=== PATIENT | female | born 1985 | race Caucasian/White ===

== ENCOUNTER 2017-07-17 20:04 | Emergency (ER) ==
[2017-07-17 20:13] VITALS: BP 149/109; TEMP 98.6; BMI 29.2
[2017-07-17] MEDS ORDERED: SODIUM CHLORIDE 1,000 ML IV STA (20:22)
[2017-07-17] MEDS ORDERED: DILAUDID 1 MG/ML SYRINGE IVP STA ×2 (20:24→21:33)
[2017-07-17] MEDS ORDERED: ZOFRAN 4 MG/2 ML IVP STA (20:24)
[2017-07-17 20:51] LABS: BASOPHILS # (AUTO) 0.1 K/uL (0-0.2); BASOPHILS % (AUTO) 0.5 % (0.0-3.0); EOSINOPHILS # (AUTO) 0.1 K/ul (0.0-0.7); EOSINOPHILS % (AUTO) 0.8 % (0.0-7.0); HEMATOCRIT 41.3 % (37.0-47.0); HEMOGLOBIN 14.4 g/dl (12.0-16.0); IMMATURE GRANULOCYTE % (AUTO) 0.6 % (0.0-5.0); LYMPHOCYTES # (AUTO) 1.2 K/uL (0.60-3.4); LYMPHOCYTES % (AUTO) 10.7 (10.0-50.0); MEAN CORPUSCULAR HEMOGLOBIN 29.7 pg (27.0-31.0); MEAN CORPUSCULAR HGB CONC 34.9 (31.8-35.4); MEAN CORPUSCULAR VOLUME 85.2 fl (81.0-99.0); MONOCYTES # (AUTO) 0.8 K/uL (0.4-2.0); NEUTROPHILS # (AUTO) 9.3 K/ul (2.0-6.9); NEUTROPHILS % (AUTO) 80.4; PLATELET COUNT 340 10^3/uL (140-440); RED BLOOD COUNT 4.85 10^6/ul (4.20-5.40); WHITE BLOOD COUNT 11.51 K/ul (4.6-10.2)
[2017-07-17 21:03] LABS: ADD URINE MICROSCOPIC YES; BILIRUBIN,URINE Negative (NEGATIVE); KETONES,URINE Negative (NEGATIVE); LEUKOCYTE ESTERASE ,URINE Negative (NEGATIVE); NITRITE,URINE Negative (NEGATIVE); PH,URINE 7.5 (5-9); PROTEIN,URINE Negative (NEGATIVE); URINE, BLOOD 1+ (NEGATIVE)
[2017-07-17 21:06] LABS: SERUM PREGNANCY INTERNAL QC INTERNAL QC VALID
[2017-07-17 21:08] LABS: ALBUMIN 3.8 g/dL (3.4-5.0); ALBUMIN/GLOBULIN RATIO 1.03; ANION GAP 15.6; BILIRUBIN,TOTAL 0.59 mg/dL (0.00-1.20); BUN/CREATININE RATIO 8.53; CALCIUM 9.9 mg/dL (8.2-10.2); CREATININE 0.82 mg/dL (0.60-1.30); POTASSIUM 3.6 mmol/L (3.5-5.10); TOTAL PROTEIN 7.5 g/dL (6.4-8.2)
--- NOTE | 2017-07-17 21:29 | CT ---
EXAM: CT of the abdomen pelvis without contrast History: Abdominal pain and nausea. Comparison: None available. Technique: Multiplanar CT images through the abdomen pelvis were obtained without the administration of IV contrast Findings: Lung bases are free of consolidation. Calcified granuloma within the left lower lobe. No acute osseous abnormalities. No renal stones and no hydronephrosis. The appendix is not dilated or inflamed. Long right lobe of the liver. No focal liver or splenic lesions. Gallbladder is distended. No peripancreatic inflamma tion. Adrenal glands are unremarkable. Tiny fat containing umbilical hernia. No bowel obstruction. No free air. No ascites. No bladder wall thickening. Adnexal structures appear appropriate for p atient's age. No perirectal inflammation. Impression: Distended gallbladder. Recommend further evaluation with right upper quadrant abdominal ultrasound. No other significant findings.
--- NOTE | 2017-07-17 21:36 | ED.PDOC ---
General ED Provider: Dr. LIONEL KRISHNAMURTHY-ER Chief Complaint: Abdominal Pain Stated Complaint: has had known gallstones for 2mos--ate breakfast food today and caused her right upper quad pain--no fever ,chills, or vomiting Time Seen by Physician: 20:10 Mode of Arrival: Walk-In Information Source: Patient, Family Exam Limitations: No limitations Nursing and Triage Documentation Reviewed and Agree: Yes GI Complaint Exam - Abdominal Pain Complaint/Exam Onset: Gradual Duration: 2 mos Symptoms Are: Still present Timing: Intermittent Initial Severity: Mild Current Severity: Mild Location of Pain: Discrete, RUQ Character: Reports: Dull, Aching, Cramping Aggravating: Reports: Food Alleviating: Reports: None Associated Signs and Symptoms: Reports: Nausea. Denies: Diaphoresis, Fever, Cough, Chest pain, Dizziness, Back pain, Constipation, Blood in stool, Dysuria, Urinary frequency, Decreased urine output, Decreased appetite, Vaginal bleeding , Vaginal discharge, Vomiting, Diarrhea, Sore throat, Decreased activity Related History: Reports: Similar episode Patient Rh Status: Unknown Abdominal Findings: Present: None Differential Diagnoses: GB, PUD Review of Systems - Review Of Systems Constitutional: Reports: No symptoms Eyes: Reports: No symptoms Ears, Nose, Mouth, Throat: Reports: No symptoms Respiratory: Reports: No symptoms Cardiac: Reports: No symptoms GI: Reports: Abdominal pain, Nausea : Reports: No symptoms Musculoskeletal: Reports: No symptoms Skin: Reports: No symptoms Neurological: Reports: No symptoms Endocrine: Reports: No symptoms Hematologic/Lymphatic: Reports: No symptoms All Other Systems: Reviewed and Negative Past Medical History - Past Medical History Previously Healthy: Yes Endocrine: Reports: Unknown Cardiovascular: Reports: Unknown Respiratory: Reports: Unknown Hematological: Reports: Unknown Gastrointestinal: Reports: Unknown Genitourinary: Reports: Unknown Neuro/Psych: Reports: Unknown Musculoskeletal: Reports: Unknown Cancer: Reports: Unknown Last Menstrual Period: CURRENT - Surgical History General Surgical History: Reports: Unknown - Family History Family History: Reports: Unknown - Social History Smoking Status: Never smoker Hx Substance Use: No Alcohol Screening: None Lives: With family - Immunizations Tetanus Shot up to Date: Yes Physical Exam - Physical Exam Appearance: Well-appearing, No pain distress, Well-nourished Eyes: JIMMY, EOMI, Conjunctiva clear ENT: Ears normal, Nose normal, Oropharynx normal Neck: Supple Respiratory: Airway patent, Breath sounds clear, Breath sounds equal, Respirations nonlabored Cardiovascular: RRR, Pulses normal, No rub, No murmur GI/: Soft, No masses, Bowel sounds normal, No Organomegaly, Tender Musculoskeletal: Normal strength, ROM intact, No edema, No calf tenderness Skin: Warm, Dry, Normal color Neurological: Sensation intact Psychiatric: Affect appropriate, Mood appropriate Interpretation - Radiology Interpretation Radiology Interpretation By: Radiologist Radiology Results: Positive Exam Interpreted: CT Scan Xray Comments: "distended gb" Re-Evaluation - Re-Evaluation Time of Re-Evaluation: 21:37 Status: Improved Vital Signs Stable: Yes Pain Level: 0 Appearance: NAD Lungs: Clear Skin: Warm and Dry Neuro: Alert and Oriented X3 CV: RRR Critical Care Note - Critical Care Note Total Time (mins): 0 Course - Course Hematology/Chemistry: 07/17/17 20:45 07/17/17 20:45 Orders, Labs, Meds: Lab Review 07/17/17 07/17/17 07/17/17 20:45 20:45 20:45 WBC 11.51 H RBC 4.85 Hgb 14.4 Hct 41.3 MCV 85.2 MCH 29.7 MCHC 34.9 RDW Coeff of Adriana 13.2 Plt Count 340 Immature Gran % (Auto) 0.6 Neut % (Auto) 80.4 Lymph % (Auto) 10.7 Real % (Auto) 7.0 Eos % (Auto) 0.8 Baso % (Auto) 0.5 Immature Gran # (Auto) 0.1 Neut # 9.3 H Lymph # 1.2 Real # 0.8 Eos # 0.1 Baso # 0.1 Sodium 144 Potassium 3.6 Chloride 104 Carbon Dioxide 28 Anion Gap 15.6 BUN 7 Creatinine 0.82 Estimated GFR (MDRD) 80.00 BUN/Creatinine Ratio 8.53 Glucose 110 Calcium 9.9 Total Bilirubin 0.59 AST 95 H ALT 51 Alkaline Phosphatase 58 Total Protein 7.5 Albumin 3.8 Globulin 3.7 Albumin/Globulin Ratio 1.03 Amylase 61 Lipase 17 Serum , Qual Negative Urine Color Urine Clarity Urine pH Ur Specific [place] Urine Protein Urine Glucose (UA) Urine Ketones Urine Blood Urine Nitrite Urine Bilirubin Urine Urobilinogen Ur Leukocyte Esterase Urine Microscopic RBC Ur Squamous Epith Cells 07/17/17 20:56 WBC RBC Hgb Hct MCV MCH MCHC RDW Coeff of Adriana Plt Count Immature Gran % (Auto) Neut % (Auto) Lymph % (Auto) Real % (Auto) Eos % (Auto) Baso % (Auto) Immature Gran # (Auto) Neut # Lymph # Real # Eos # Baso # Sodium Potassium Chloride Carbon Dioxide Anion Gap BUN Creatinine Estimated GFR (MDRD) BUN/Creatinine Ratio Glucose Calcium Total Bilirubin AST ALT Alkaline Phosphatase Total Protein Albumin Globulin Albumin/Globulin Ratio Amylase Lipase Serum , Qual Urine Color Yellow Urine Clarity Clear Urine pH 7.5 Ur Specific [place] 1.015 Urine Protein Negative Urine Glucose (UA) Negative Urine Ketones Negative Urine Blood 1+ Urine Nitrite Negative Urine Bilirubin Negative Urine Urobilinogen 0.2 Ur Leukocyte Esterase Negative Urine Microscopic RBC 2-5 Ur Squamous Epith Cells Not present Orders Category Date Time Status IV [ED IV/MEDIPORT/POWERPORT] .ONCE EMERGENCY 07/17/17 20:21 Active AMYLASE Stat LAB 07/17/17 20:45 Completed CBC W/ AUTO DIFF Stat LAB 07/17/17 20:45 Completed COMPREHENSIVE METABOLIC PANEL Stat LAB 07/17/17 20:45 Completed LIPASE Stat LAB 07/17/17 20:45 Completed SERUM Stat LAB 07/17/17 20:45 Completed URINALYSIS C & S IF INDICATED Stat LAB 07/17/17 20:56 Completed 0.9 % Sodium Chloride [Saline Flush] MEDS 07/17/17 20:21 Ordered 1 syr IVF PRN PRN Hydromorphone HCl [Dilaudid 1 mg/ml Syringe] MEDS 07/17/17 20:24 Discontinued 1 mg IVP ONCE STA Hydromorphone HCl [Dilaudid 1 mg/ml Syringe] MEDS 07/17/17 21:33 Stat 1 mg IVP ONCE STA Ondansetron HCl/Pf [Zofran 4 mg/2 ml] MEDS 07/17/17 20:24 Discontinued 4 mg IVP ONCE STA Sodium Chloride 0.9% [Sodium Chloride] 1,000 ml MEDS 07/17/17 20:22 Active IV 100 mls/hr CT ABDOMEN/PELVIS WO CONTRAST Stat RADS 07/17/17 20:22 Completed Medications Generic Name Dose Route Start Last Admin Trade Name Freq PRN Reason Stop Dose Admin Sodium Chloride 1,000 mls @ 100 mls/hr 07/17/17 20:22 07/17/17 20:50 Sodium Chloride IV 07/18/17 06:21 100 mls/hr .Q10H STA Administration Sodium Chloride 1 syr 07/17/17 20:21 07/17/17 20:50 Saline Flush IVF 1 syr PRN PRN Administration To flush IV Discontinued Medications Generic Name Dose Route Start Last Admin Trade Name Freq PRN Reason Stop Dose Admin Hydromorphone HCl 1 mg 07/17/17 20:24 07/17/17 20:50 Dilaudid 1 Mg/Ml Syringe IVP 07/17/17 20:25 1 mg ONCE STA Administration Ondansetron HCl 4 mg 07/17/17 20:24 07/17/17 20:50 Zofran 4 Mg/2 Ml IVP 07/17/17 20:25 4 mg ONCE STA Administration Vital Signs: Temp Pulse Resp BP Pulse Ox 07/17/17 20:08 98.6 F 90 20 149/109 H 99 Departure - Departure Time of Disposition: 21:37 Disposition: HOME SELF-CARE Discharge Problem: Cholelithiasis Qualifiers: Cholelithiasis location: gallbladder Cholecystitis presence: without cholecystitis Biliary obstruction: without biliary obstruction Qualified Code(s) : K80.20 - Calculus of gallbladder without cholecystitis without obstruction Instructions: Biliary Colic (ED), Gallstones (ED) Condition: Good Pt referred to PMD for follow-up: Yes Additional Instructions: low fat diet==---librax q 8hrs prn pain #10--f/u surgeon in [place]--return to the er if any fever, vomiting or uncontrolled pain Home Medications: Ambulatory Orders Dicyclomine HCl 20 mg PO 1-2XD PRN 07/17/17 Levothyroxine Sodium [Synthroid] 50 mcg PO DAILY 07/17/17 Ondansetron [Zofran Odt] 4 mg PO Q8H 07/17/17 Paroxetine HCl [Paxil] 25 mg PO DAILY 07/17/17 Disposition Discussed With: Patient, Family
== END 2017-07-17 21:58 | disposition home or self-care (01) ==
LOC: ED 20:04
DX: K80.20 Calculus of gallbladder without cholecystitis without obstruction (principal)
CPT/HCPCS: 36415; 80053; 81001; 82150; 83690; 84703; 85025; 96361; 96374; 96375; 99283